=== PATIENT | female | born 1945 | race Caucasian/White ===

== ENCOUNTER → 2017-01-17 | Outpatient (CLI) | payer OTHER ==
--- NOTE | 2017-01-17 14:07 | PCVCIMAG ---
EXAM: ULTRASOUND OF THE THYROID INDICATION: Thyroid nodules. FINDINGS: The right thyroid lobe measures 1.2 x 1.2 x 2.8 cm. The left thyroid lobe measures 0.9 x 1.3 x 3.0 cm. There is a 0.4 x 0.6 x 0.7 cm solid nodule seen in the inferior medial right thyroid lobe. This is unchanged since January 2016 study. There is a 0.4 x 0.7 x 0.8 cm solid nodule in the thyroid isthmus to the left of midline and this is also unchanged. IMPRESSION: Inferior medial right thyroid lobe and thyroid isthmus solid nodules as reviewed above are unchanged since prior study. LOC:[id number]
== END | disposition home or self-care (01) ==
LOC: PCVCIMAG 09:12
PROVIDERS: ATTEND Internal Medicine Cardiovascular Disease
DX: E04.1 Nontoxic single thyroid nodule (principal); I10 Essential (primary) hypertension; I34.0 Nonrheumatic mitral (valve) insufficiency; I48.91 Unspecified atrial fibrillation; E78.5 Hyperlipidemia, unspecified; J44.9 Chronic obstructive pulmonary disease, unspecified; Z87.891 Personal history of nicotine dependence; Z79.899 Other long term (current) drug therapy
CPT/HCPCS: 76536; 80061; 93005; G0463

== ENCOUNTER → 2017-08-25 | Outpatient (CLI) | payer OTHER | END | disposition home or self-care (01) | LOC: PCVCIMAG 10:45 | DX: E04.1 Nontoxic single thyroid nodule (principal); I48.91 Unspecified atrial fibrillation; I10 Essential (primary) hypertension; E78.5 Hyperlipidemia, unspecified; J44.9 Chronic obstructive pulmonary disease, unspecified; E03.9 Hypothyroidism, unspecified; I34.0 Nonrheumatic mitral (valve) insufficiency; Z87.891 Personal history of nicotine dependence; Z79.899 Other long term (current) drug therapy; Z88.8 Allergy status to other drugs, medicaments and biological substances | CPT/HCPCS: 76536; 80061; 93005; G0463 ==

== ENCOUNTER → 2017-08-25 | Outpatient (CLI) | payer OTHER | END | disposition home or self-care (01) | LOC: PCVCCLINIC 10:34 | DX: I48.91 Unspecified atrial fibrillation (principal); I10 Essential (primary) hypertension; E78.5 Hyperlipidemia, unspecified; J44.9 Chronic obstructive pulmonary disease, unspecified; E03.9 Hypothyroidism, unspecified; E04.1 Nontoxic single thyroid nodule; I34.0 Nonrheumatic mitral (valve) insufficiency; Z88.8 Allergy status to other drugs, medicaments and biological substances; Z87.891 Personal history of nicotine dependence; Z79.899 Other long term (current) drug therapy | CPT/HCPCS: 80061; 93005; G0463 ==

== ENCOUNTER → 2018-05-14 | Outpatient (CLI) | payer OTHER ==
--- NOTE | 2018-05-14 11:17 | PCVCIMAG ---
APPROVED REPORT Study performed: 05/14/2018 09:23:44 EXAM: Comprehensive 2D, Doppler, and color-flow Echocardiogram Patient Location: Echo lab Room #: 2Status: routine BSA: 2.27 HR: 56 bpmBP: 152/80 mmHg Rhythm: NSR,Bradycardia Other Information Study Quality: Good Risk Factors: Cardiac Risk Factors: HTN Indications COPD Atrial Fibrillation Hypertension/HDD HX: Paroxysmal A Fib, MR 2D Dimensions IVSd: 8.38 (7-11mm)LVOT Diam: 19.57 (18-24mm) LVDd: 48.52 mm PWd: 7.74 (7-11mm)Ascending Ao: 33.59 (22-36mm) LVDs: 30.95 (25-40mm) Left Atrium: 30.88 (27-40mm) Aortic Root: 27.29 mm LV Single Plane 4CH: 61.98 % LV Single Plane 2CH: 56.66 % Biplane EF: 58.3 % Volumes Left Atrial Volume (Systole) Single Plane 4CH: 50.58 mLSingle Plane 2CH: 58.56 mL Biplane LA Volume: 63.00 mLLA ESV Index: 28.00 mL/m2 Aortic Valve AoV Peak Leobardo.: 1.48 m/s AO Peak Gr.: 8.79 mmHgLVOT Max P.16 mmHg LVOT Max V: 0.74 m/s AUGUSTINE Vmax: 1.49 cm2 Mitral Valve E/A Ratio: 1.2 MV Decel. Time: 243.89 ms MV E Max Leobardo.: 0.56 m/s MV A Leobardo.: 0.48 m/s IVRT: 79.58 ms TDI E/Lateral E': 5.60E/Medial E': 7.00 Medial E' Leobardo.: 0.08 m/s Lateral E' Leobardo.: 0.10 m/s Pulmonary Valve PV Peak Leobardo.: 0.89 m/sPV Peak Gr.: 3.15 mmHg Pulmonary Vein P Vein S: 0.46 m/sP Vein A: 0.29 m/s P Vein D: 0.55 m/sP Vein A Dur.: 110.7 msec P Vein S/D Ratio: 0.84 Tricuspid Valve TR Peak Leobardo.: 2.68 m/s TR Peak Gr.: 28.80 mmHg TV Vmax: 0.62 m/sPA Pressure: 36.00 mmHg Left Ventricle The left ventricle is normal size. There is normal LV segmental wall motion. There is normal left ventricular wall thickness. Left ventricular systolic function is normal. The left ventricular ejection fraction is within the normal range. LVEF is 55-60%. The left ventricular diastolic function is normal. Right Ventricle The right ventricle is normal size. The right ventricular systolic function is normal. Atria The left atrium size is normal. The right atrium size is normal. Aortic Valve Aortic valve is trileaflet. The aortic valve is normal in structure. No aortic regurgitation is present. There is no aortic valvular stenosis. Mitral Valve The mitral valve is normal in structure. There is no mitral valve regurgitation noted. No evidence of mitral valve stenosis. Tricuspid Valve The tricuspid valve is normal in structure. Trace tricuspid regurgitation with a PA pressure of 36 mmHg. Mild pulmonary hypertension. Pulmonic Valve The pulmonary valve is normal in structure. There is no pulmonic valvular regurgitation. Great Vessels The aortic root is normal in size. The ascending aorta is normal in size. Aortic arch is normal in caliber. IVC is normal in size and collapses >50% with inspiration. Pericardium There is no pericardial effusion. There is no pleural effusion. <Conclusion> The left ventricle is normal size. LVEF is 55-60%. The left ventricular diastolic function is normal. The right ventricle is normal size. The left atrium size is normal. Aortic valve is trileaflet. The aortic valve is normal in structure. There is no mitral valve regurgitation noted. The aortic root is normal in size. There is no pericardial effusion.
== END | disposition home or self-care (01) ==
LOC: PCVCIMAG 09:07
PROVIDERS: ATTEND Internal Medicine Cardiovascular Disease
DX: J44.9 Chronic obstructive pulmonary disease, unspecified (principal); I27.20 Pulmonary hypertension, unspecified; I10 Essential (primary) hypertension; I48.0 Paroxysmal atrial fibrillation
CPT/HCPCS: 93306

== ENCOUNTER → 2018-12-07 | Outpatient (CLI) | payer OTHER ==
--- NOTE | 2018-12-07 12:30 | PCVCIMAG ---
EXAM: ULTRASOUND OF THE THYROID INDICATION: Thyroid nodules. FINDINGS: The right thyroid lobe measures 1.2 x 1.4 x 2.9 cm. The left thyroid lobe measures 0.9 x 1.6 x 4.7 cm. 0.4 x 0.7 x 0.9 cm solid lesion mid/lower right thyroid lobe is slightly more prominent than 2018 study. 0.5 x 0.7 x 0.8 cm solid nodule left side of the thyroid isthmus is also slightly more prominent than 2018 study. 0.3 x 0.4 x 0.5 cm hypoechoic nodule inferior left thyroid lobe was not definitely present previously. IMPRESSION: 3 thyroid nodules as reviewed above one of which was not seen in 2018 and the other 2 which are slightly more prominent in size. Further evaluation by ENT could be done if needed. LOC:[id number]
== END | disposition home or self-care (01) ==
LOC: PCVCIMAG 09:37
PROVIDERS: ATTEND Internal Medicine Cardiovascular Disease
DX: E04.2 Nontoxic multinodular goiter (principal); D68.59 Other primary thrombophilia; J44.9 Chronic obstructive pulmonary disease, unspecified; E78.00 Pure hypercholesterolemia, unspecified; I48.91 Unspecified atrial fibrillation; I10 Essential (primary) hypertension; Z87.891 Personal history of nicotine dependence; Z88.5 Allergy status to narcotic agent
CPT/HCPCS: 76536